=== PATIENT | male | born 1940 | race Caucasian/White ===

== ENCOUNTER 2017-08-16 16:00 | Emergency (ER) | payer OTHER, MEDICAID ==
[2017-08-16 16:08] VITALS: BP 186/107
--- NOTE | 2017-08-16 16:18 | EDPHY ---
HPI/HX/ROS/PE/MDM Narrative: CHIEF COMPLAINT: Stepped on a staple HISTORY OF PRESENT ILLNESS: This patient is a 76 y/o male presenting after he stepped on a long staple lodged in a piece of lumber with his left foot. The staple went through his sandal and punctured his foot in two areas. He did not fall. He cleaned the area with hydrogen peroxide and put a bandage over the area, which has since fallen off. He endorses some bleeding initially, but this has stopped completely. His primary concern is that he is due for a tetanus booster. He denies any other trauma or further complaints. REVIEW OF SYSTEMS: Aside from elements discussed in the HPI, a comprehensive 10-point review of systems was reviewed and is negative. PAST MEDICAL HISTORY: Denies. SOCIAL HISTORY: Lives in [place]. Single. Retired. VITAL SIGNS: Reviewed by me GENERAL: Well-developed, well-nourished, resting comfortably in no respiratory distress. HEENT: Atraumatic. Mouth: moist mucous membranes. Neck: supple with no adenopathy. LUNGS: No respiratory distress. CARDIAC: Regular rate and rhythm. EXTREMITIES: 2 small puncture wounds over left mid 2nd and 3rd metatarsal. Not bleeding. No edema. Range of motion is normal throughout. NEURO: Alert and oriented, grossly nonfocal. SKIN: Warm and dry, no rash. PSYCHIATRIC: Normal mentation, no agitation. Portions of this note were transcribed by a biomedical service engineer. I personally performed a history, physical exam, medical decision making, and confirmed accuracy of information the transcribed note. ED Course: 76 y/o male presents after stepping on a staple earlier today. Exam reveals two small punctures to the left plantar surface. Plan to clean under standard ED protocol. I offered the patient antibiotic treatment that can cover pseudomonas e.g. Levaquin. The patient declines antibiotics. I discussed strict return precautions regarding infection. He understands to return immediately should signs of infection occur. Plan to administer TDAP booster IM. Plan to discharge patient home in good condition. He has been given a pair of socks to keep his foot clean on his way home as he is wearing sandals. Follow up and return precautions discussed. He is comfortable with this plan. MDM: Differential diagnosis for the patient's injury was considered including but not limited to contusion, abrasion, laceration, fracture, open fracture, or dislocation. - Data Points Medications Given: Discontinued Medications Diphtheria/Tetanus/Acell Pertussis (Boostrix) 0.5 ml IM .ONCE ONE Stop: 08/16/17 16:41 Last Admin: 08/16/17 16:42 Dose: 0.5 ml General Time Seen by Provider: 08/16/17 16:10 Initial Vital Signs: Initial Vital Signs Temperature (C) 36.7 C 08/16/17 16:04 Heart Rate 62 08/16/17 16:04 Respiratory Rate 16 08/16/17 16:04 Blood Pressure 186/107 H 08/16/17 16:04 O2 Sat (%) 99 08/16/17 16:04 O2 Delivery Mode Room Air Allergies/Adverse Reactions: No Known Allergies Allergy (Unverified 12/11/15 20:03) Home Medications: Medication Instructions Recorded NK [No Known Home Meds] 12/11/15 Departure - Departure Disposition: Home, Routine, Self-Care Clinical Impression: Puncture wound of left foot Qualifiers: Encounter type: initial encounter Qualified Code(s): S91.332A - Puncture wound without foreign body, left foot, initial encounter Condition: Good Instructions: Puncture Wound (ED) Additional Instructions: Keep your foot clean and dry. Follow up with your primary care provider. You may take Tylenol 650mg every 4-6 hours as needed for pain. Return to the Emergency Department for fever, redness, discharge from wound, increasing pain or other worsening of condition. Referrals: Ewelina Eagle PA [Primary Care Provider] - As per Instructions Report Scribed for: Christine Francois Report Scribed by: Leyda Riggs Date of Report: 08/16/17 Time of Report: 16:24
[2017-08-16] MEDS ORDERED: TDAP ADULT 0.5 ML INJ (BOOSTRIX) IM ONE (16:40)
== END 2017-08-16 16:47 | disposition home or self-care (01) ==
DX: S91.332A Puncture wound without foreign body, left foot, initial encounter (principal); Z23 Encounter for immunization; W26.8XXA Contact with other sharp object(s), not elsewhere classified, initial encounter; Y99.8 Other external cause status; Y93.89 Activity, other specified

== ENCOUNTER 2018-09-25 18:27 | Emergency (ER) | payer OTHER, MEDICAID | END 2018-09-25 18:53 | disposition home or self-care (01) ==